=== PATIENT | female | born 1990 | race Caucasian/White ===

== ENCOUNTER 2020-05-30 08:27 | Outpatient (CLI) | payer BC, SELFPAY ==
--- NOTE | 2020-05-30 08:32 | US_ITS ---
WS: [id number] ULTRASOUND EARLY TECHNIQUE: Transabdominal sonography of the pelvis was performed. Followed by transvaginal sonography to better evaluate the uterus and ovaries. CLINICAL INFORMATION: SUPERVISION, NORMAL LMP: 04/07/2020 Beta hCG: Unknown. COMPARISON: None. FINDINGS: UTERUS AND GESTATIONAL SAC Intrauterine gestations: 1-year-old sacs are identified. Only one pole and heart rate identifie d. Recommend short interval follow-up to evaluate for twin . Estimated gestational age: 6w2d 2 Yolk sacs are identified [place] rump length (CRL): 0.4 cm. heart motion: 96 BPM. Subchorionic hemorrhage: None. OVARIES Right ovary: Normal. Left ovary: Corpus luteum cyst measuring 2.4 x 2.3 x 2.3 cm FREE FLUID None. US/US OB <=14 wk fetus w transvag IMPRESSION: 1. Single live intrauterine . 2. Estimated gestational age; 6w2 3. 2 yolk sacs are identified. However, only one pole and one heart rate identified. Recommend short interval follow-up in one to 2 weeks to evaluate f or twin . 4. Left corpus luteum cyst
== END 2020-05-30 08:28 | disposition home or self-care (01) ==
LOC: US 08:29
PROVIDERS: Family Provider Family Medicine; Visit Provider Family Medicine
DX: Z34.80 Encounter for supervision of other normal pregnancy, unspecified trimester (principal); Z3A.01 Less than 8 weeks gestation of pregnancy; N83.12 Corpus luteum cyst of left ovary
CPT/HCPCS: 76801; 76817

== ENCOUNTER 2021-11-27 14:50 | Outpatient (CLI) | payer BC, SELFPAY ==
--- NOTE | 2021-11-27 15:10 | US_ITS ---
WS: [email or web address] ULTRASOUND LEFT BREAST HISTORY: BREAST LESION @ 3 O'CLOCK COMPARISON: None available. TECHNIQUE: 2-D and Doppler. There is a solid mass with increased vascularity and scattered cystic areas within the LEFT breast at 3:00, 2 cm from the nipple. This is a solid mass measuring 2.4 x 1.8 x 1.8 cm. Small benign-appearing lymph nodes in the LEFT axilla. US/US breast LT limited* [id number] IMPRESSION: BI-RADS: 4-Suspicious Finding-Biopsy Should Be Considered FOLLOW-UP: Biopsy Recommended Notified Paul Hyman MD at 11/30/2021 8:19 AM.
--- NOTE | 2021-11-27 15:10 | US_ITS ---
WS: [email or web address] EARLY OBSTETRICAL ULTRASOUND (<14 WEEKS). HISTORY: DATING COMPARISON: None available. Single intrauterine gestational sac is identified. Cardiac activity at 176 BPM. Lyle-rump length cuauhtemoc sures 2.0 cm which corresponds to a gestation of 8w4d. Normal-appearing yolk sac and amnion demonstra marsha. No subchorionic hemorrhage. No free fluid. LEFT ovary measures 2.3 x 4.2 x 4.4 cm. Normal size. RIGHT ovary measures 4.1 x 3.7 x 4.6 cm. The RIGHT ovary is slightly enlarged. There is a cyst associ ated with the RIGHT ovary with low-level echoes measuring 3.8 x 3.3 x 3.0 cm. There is also mild veno us congestion in the RIGHT adnexa with increased vascularity. Probably due to prior pregnancies. US/US OB <= 14 weeks fetus [id number] IMPRESSION: 1. Single intrauterine gestation of 8 weeks 4 days with an EDC of 07/05/2022 2. Mildly complex RIGHT ovarian cyst measures 3.8 x 3.3 x 3.0 cm and is probab ly a corpus luteum of . 3. Normal cardiac activity.
== END 2021-11-27 14:51 | disposition home or self-care (01) ==
LOC: RAD 15:02
PROVIDERS: PCP Family Medicine; Visit Provider Family Medicine
DX: Z36.87 Encounter for antenatal screening for uncertain dates (principal); Z3A.08 8 weeks gestation of pregnancy; N64.9 Disorder of breast, unspecified; N83.201 Unspecified ovarian cyst, right side
CPT/HCPCS: 76642; 76801

== ENCOUNTER 2021-12-18 07:43 | Outpatient (CLI) | payer BC, SELFPAY ==
--- NOTE | 2021-12-18 08:01 | US_ITS ---
WS: [email or web address] ULTRASOUND-GUIDED LEFT BREAST BIOPSY HISTORY: BREAST LESION COMPARISON: 11/27/2021 Procedure, risks and complications are explained to the patient. Medications are reviewed. Consent is obtained. The mass in the LEFT breast is localized with ultrasound. Mass localizes at 3:00, 2 cm from the nippl e. Skin is cleansed with ChloraPrep and anesthetized with 1% buffered lidocaine. Small dermatome is m hilaria. Under sterile conditions mass is biopsied with a 14-gauge Achieve needle. Multiple core biopsies are performed. Material placed in formalin and sent to pathology for review. No complications encoun tered. Breast tissue marker (MyGe[employer] ultrasound enhanced ribbon): Single. Patient left the radiology suite with no complications. Patient is instructed to return to [facility] or [facility] with any concerns. US/[place] [id number] IMPRESSION: 1. Uncomplicated core needle biopsy LEFT breast mass at 3:00. 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 No malignancy. RECOMMENDATION: This mass can be left alone as it is benign or surgical removal due to its large size. No further imaging necessary at this time.
== END 2021-12-18 07:44 | disposition home or self-care (01) ==
LOC: RAD 07:45
PROVIDERS: PCP Family Medicine; Visit Provider Family Medicine
DX: N64.9 Disorder of breast, unspecified (principal); N63.25 Unspecified lump in the left breast, overlapping quadrants
CPT/HCPCS: 19083; 88305

== ENCOUNTER 2022-02-15 07:10 | Outpatient (CLI) | payer BC, SELFPAY ==
--- NOTE | 2022-02-15 07:15 | US_ITS ---
WS: [email or web address] OBSTETRICAL ULTRASOUND COMPLETE HISTORY: ANATOMY COMPARISON: 11/27/2021 Single intrauterine gestation in variable presentation. The vertex at the end of the examination. Cervix is Closed and normal length. Cervical length is 4.8 cm. Normal amount of amniotic fluid surrounds the fetus. Placenta: Posterior, no previa or abruption. Placenta grade 0 Heart: 157 BPM. Four chambers are identified. RIGHT and LEFT outflow tracts are unremarkable. Anatomy: Intracranial structures and spine are normal. kidneys, stomach and urinary bladd er are unremarkable. Abdominal wall, three-vessel cord and cord insertion site are normal. 4 extremities are present. profile: Unremarkable. Gender: Female. measurements: BPD = 4.5 cm = 19w5d HC = 17.7 cm = 20w1d AC = 14.9 cm = 20w1d FL = 3.3 cm = 20w2d EFW: 341 g. Biometry is internally concordant. AGA by ultrasound: 20w1d ELTON by ultrasound: 07/04/2022 US/US OB >= 14 weeks fetus [id number] IMPRESSION: 1. Single intrauterine gestation of 20w1d with an ELTON of 07/04/2022. Appropria te growth since the first trimester ultrasound. No growth asymmetry. 2. Unremarkable screening survey of anatomy.
== END 2022-02-15 07:11 | disposition home or self-care (01) ==
LOC: RAD 07:10
PROVIDERS: PCP Family Medicine; Visit Provider Family Medicine
DX: Z34.80 Encounter for supervision of other normal pregnancy, unspecified trimester (principal)
CPT/HCPCS: 76805

== ENCOUNTER → 2022-03-19 11:48 | Outpatient (BNVA) | payer BC, SELFPAY | PROVIDERS: PCP Family Medicine; Visit Provider Family Medicine | DX: Z34.91 Encounter for supervision of normal pregnancy, unspecified, first trimester (principal) | CPT/HCPCS: 82950 ==

== ENCOUNTER → 2022-05-14 08:04 | Outpatient (BNVA) | payer BC, SELFPAY | PROVIDERS: PCP Family Medicine; Visit Provider Family Medicine | DX: Z34.80 Encounter for supervision of other normal pregnancy, unspecified trimester (principal) | CPT/HCPCS: 85025 ==

== ENCOUNTER → 2022-05-27 12:00 | Outpatient (BNVA) | payer BC, SELFPAY | PROVIDERS: PCP Family Medicine; Visit Provider Family Medicine | DX: O16.3 Unspecified maternal hypertension, third trimester (principal) | CPT/HCPCS: 80053; 84550; 85025 ==

== ENCOUNTER 2022-05-28 14:51 | Outpatient (CLI) | payer BC, SELFPAY ==
[2022-05-28 16:27] LABS: Urine Total Protein 5.8 mg/dL (0-150)
[2022-05-28 16:42] LABS: Total Volume, Urine 3050 mL; Urine Total Protein 24 Hour 176.9 mg/24hr (0-150)
== END 2022-05-28 14:52 | disposition home or self-care (01) ==
LOC: LAB 14:54
PROVIDERS: PCP Family Medicine; Visit Provider Family Medicine
DX: O16.3 Unspecified maternal hypertension, third trimester (principal)
CPT/HCPCS: 84156

== ENCOUNTER → 2022-06-03 12:07 | Outpatient (BNVA) | payer BC, SELFPAY | PROVIDERS: PCP Family Medicine; Visit Provider Family Medicine | DX: Z34.80 Encounter for supervision of other normal pregnancy, unspecified trimester (principal) | CPT/HCPCS: 87081 ==

== ENCOUNTER → 2022-06-15 09:34 | Outpatient (BNVA) | payer BC, SELFPAY | PROVIDERS: PCP Family Medicine; Visit Provider Family Medicine | DX: Z51.81 Encounter for therapeutic drug level monitoring (principal); O16.3 Unspecified maternal hypertension, third trimester | CPT/HCPCS: 80053; 84550; 85025 ==

== ENCOUNTER 2022-06-16 07:41 | Outpatient (CLI) | payer BC, SELFPAY ==
[2022-06-16 08:06] LABS: Total Volume, Urine 3100 mL
[2022-06-16 12:13] VITALS: BP 132/87; PULSE 76; TEMP 35.7
[2022-06-16 12:16] VITALS: RESP 18
[2022-06-16 12:29] VITALS: BP 123/73; PULSE 74
[2022-06-16 12:44] VITALS: BP 123/82; PULSE 71
[2022-06-16 12:59] VITALS: BP 123/76; PULSE 80
== END 2022-06-16 13:15 | disposition home or self-care (01) ==
LOC: LAB 07:45 → OBGYN 12:10
PROVIDERS: PCP Family Medicine; Visit Provider Family Medicine
DX: O16.3 Unspecified maternal hypertension, third trimester
CPT/HCPCS: 84156

== ENCOUNTER 2022-06-16 12:02 | Outpatient (CLI) | payer BC, SELFPAY ==
[2022-06-16 12:16] VITALS: RESP 18
--- NOTE | 2022-06-16 12:16 | US_ITS ---
WS: [email or web address] ULTRASOUND OB LIMITED TECHNIQUE: Limited ultrasound examination of the fetus. CLINICAL INFORMATION: gestational HTN COMPARISON: February 15, 2022 FINDINGS: Cervix measures 5.6 cm Single interuterine gestation. Placental location is posterior fundal. Placenta grade: 1 heart rate 147 BPM. Anatomy: BDP: 9.2 cm = 37w1d HC: 32.6 cm = 37w0d AC: 33.2 cm = 37w1d FEMUR LENGTH: 7.3 cm = 37w1d Estimated weight: 3121 g. EGA by ultrasound: 37w1d ELTON by ultrasound: 07/06/2022 Biophysical profile 8 out of 8. breathin movement: 2 tone: 2 Amniotic fluid: 2 Normal biophysical profile 8 out of 8 US/US OB lmt w/ BPP wo NST IMPRESSION: 1. Normal biophysical profile 8 out of 8 2. Normal DU 15.1 cm. This is greater than the median and less than 95th perc entile for gestational age. 3. Closed cervix measures 5.6 cm. 4. growth parameters at the upper end of the range.
[2022-06-16 12:23] VITALS: BMI 34.2
== END 2022-06-16 13:15 | disposition home or self-care (01) ==
LOC: OPOB 12:09
PROVIDERS: PCP Family Medicine; Visit Provider Family Medicine
DX: O26.899 Other specified pregnancy related conditions, unspecified trimester (principal); Z3A.00 Weeks of gestation of pregnancy not specified
CPT/HCPCS: 59025; 76815; 76819

== ENCOUNTER 2022-06-21 09:23 | Outpatient (CLI) | payer BC, SELFPAY ==
[2022-06-21 09:26] VITALS: BMI 33.9
[2022-06-21 09:30] VITALS: BP 136/90; PULSE 90
[2022-06-21 09:46] VITALS: BP 143/85; PULSE 83
[2022-06-21 10:02] VITALS: BP 140/84; PULSE 105
== END 2022-06-21 10:08 | disposition home or self-care (01) ==
LOC: OPOB 09:24 → OBGYN 09:25
PROVIDERS: PCP Family Medicine; Visit Provider Family Medicine
DX: O16.3 Unspecified maternal hypertension, third trimester (principal); Z3A.37 37 weeks gestation of pregnancy
CPT/HCPCS: 59025

== ENCOUNTER 2022-06-23 18:23 | Inpatient (IN) | payer BC, SELFPAY ==
[2022-06-23] VITALS (30 sets, daily range): BP systolic 122–156; BP diastolic 69–97; PULSE 69–109; RESP 18; O2SAT 93–98; BMI 34.8
[2022-06-23 19:17] LABS: Basophils % 0.1 %; Eosinophils # 0.1 10^3/uL (0.0-0.8); Hematocrit 35.7 % (37.0-47.0); Hemoglobin 11.9 g/dL (11.5-15.3); Lymphocytes # 1.5 10^3/uL (0.8-4.8); Lymphocytes % 14.1 %; Mean Corpuscular HGB Conc 33.3 g/dL (30.0-36.0); Mean Corpuscular Hemoglobin 29.1 pg (28.0-34.0); Mean Corpuscular Volume 87.3 fl (81-99); Mean Platelet Volume 12.7 fL (7.4-10.4); Monocytes # 0.7 10^3/uL (0.2-0.9); Monocytes % 6.6 %; Neutrophils # 8.13 10^3/uL (1.8-7.7); Neutrophils % 77.7 %; Nucleated Red Blood Cells % 0 %; Platelet Count 172 10^3/cmm (130-400); Red Blood Count 4.09 10^6/uL (4.1-5.3); Red Cell Distribution Width 13.5 % (12.1-15.1); White Blood Count 10.5 10^3/uL (4.0-10.0)
[2022-06-23] MEDS: ampicillin 2,000 MG in sodium chloride 0.9% (plus) 50 ML 100 MG IV (19:29)
[2022-06-23] MEDS: dextrose 5%-lactated ringers 1,000 ML 125 ML IV (19:29)
[2022-06-23 19:38] LABS: Alanine Aminotransferase 15 U/L (0-33); Albumin Level 3.6 g/dL (3.5-5.2); Alkaline Phosphatase 152 U/L (35-105); Aspartate Amino Transferase 18 U/L (0-32); Blood Urea Nitrogen 8 mg/dL (6-20); Calcium 8.7 mg/dL (8.5-10.5); Carbon Dioxide 21 mmol/L (22-29); Chloride 103 mmol/L (98-107); Glomerular Filtration Rate 142.1 mL/min (90-130); Glucose 80 mg/dL (65-115); Osmolality Calculated 279 mOsm/kg (285-295); Sodium 136 mmol/L (136-145); Total Bilirubin 0.2 mg/dL (0.15-1.2); Total Protein 6.6 g/dL (6.6-8.7)
[2022-06-23] MEDS: oxytocin 30 UNIT/500 ML BAG IV (19:41)
[2022-06-23] MEDS: lactated ringers 1,000 ML 999 ML IV (21:52)
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
[2022-06-23] MEDS: ampicillin 1,000 MG in sodium chloride 0.9% (plus) 50 ML 100 MG IV (23:09)
--- NOTE | 2022-06-23 23:25 | P.ANESUD_ITS ---
Pre-Anesthetic Update Pre-Anesthetic Assessment: Date of Surgery/Procedure: 06/23/22 Preop Luz Maria gnosis: Planning of labor analgesia Proposed Procedure: epidural Any changes to Pre-Anesthetic Assessment?: No Labs Last 48hrs: Short CBC 06/23/22 Range/Units 18:30 WBC 10.5 H (4.0-10.0) 10^3/ uL Hgb 11.9 (11.5-15.3) g/dL Hct 35.7 L (37.0-47.0) % MCV 87.3 (81-99) fl Plt Count 172 (130-400) 10^3/c mm Neut % (Auto) 77.7 % Neut # (Auto) 8.13 H (1.8-7.7) 10^3/u L BMP 06/23/22 18:30 Sodium 136 Potassium 4.0 Chloride 103 Carbon Dioxide 21 L BUN 8 Creatinine 0.5 Glucose 80 Calcium 8.7 Liver Function 06/23/22 Range/Units 18:30 Total Bilirubin 0.2 (0.15-1.2) mg/dL AST 18 (0-32) U/L ALT 15 (0-33) U/L Alkaline Phosphata se 152 H (35-105) U/L Albumin 3.6 (3.5-5.2) g/dL Vitals: Pulse Rate 83 06/23/22 23:41 Pulse Rhythm 06/23/22 19:31 Pulse Strength 3+ Normal 06/23/22 19:31 Respiratory Rate 18 06/23/22 18:58 Respiratory Effort Non-Labored 06/23/22 19:31 Respiratory Depth Normal 06/23/22 19:31 Respiratory Patter n 06/23/22 19:31 Blood Pressure 144/88 06/23/22 23:41 Pulse Oximetry 97 06/23/22 23:36 Oxygen Delivery Me thod 06/23/22 19:31 Exam: Pre-Anes Outpt Exam: alert and oriented x 3 Cardiac Studies: No Data to Display
--- NOTE | 2022-06-23 23:44 | P.ANES_ITS ---
Anesthesia Procedures Procedure/Date: 06/23/22 Epidural: Time Out Performed: Yes Consents Signed: Procedure Consent Consent: from patient, risks and benefits reviewed and patient agrees to proceed Lumbar Level: L3-L4 Epidural position: sitting Epidural procedure: sterile prep of area, 1% lidocaine to numb the area, 18 g needle, negative for p aresthesia passed, test dose given, 1.5% xylocaine 1:200k epi, placed PCEA, no systemic response, sterile dressing applied, L.U.D. no apparent complications and 0.2% Ropiavacaine @ mls/hr (13) Additional Comments: FITZ at 6, taped at 12 at skin. Neg CSF, Neg blood return
[2022-06-24] VITALS (45 sets, daily range): BP systolic 105–157; BP diastolic 59–89; PULSE 61–100; RESP 18; TEMP 36.4–36.7; O2SAT 96–97
[2022-06-24] MEDS: ampicillin 1,000 MG in sodium chloride 0.9% (plus) 50 ML 100 MG IV (03:53)
[2022-06-24] MEDS: ondansetron 2 mg/ML SDV 2 mL 4 MG IVP (04:28)
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
[2022-06-24] MEDS: acetaminophen 325 mg Tablet 650 MG PO ×3 (06:29→19:38)
[2022-06-24] MEDS: ibuprofen 800 mg tablet PO ×3 (09:04→21:17)
[2022-06-24] MEDS: prenatal vitamin Capsule 1 CAP PO (09:04)
[2022-06-24] MEDS: docusate sodium 100 mg Capsule PO ×2 (09:04→18:23)
[2022-06-24] MEDS: lanolin oint 7 gm 1 APPLIC TOPICAL (09:05)
[2022-06-24] MEDS: benzocaine-menthol 78 gm Canister 1 SPRAY TOPICAL (09:05)
--- NOTE | 2022-06-24 09:30 | ANE.PACU2 ---
Inpatient post-anesthesia follow up: Airway intact: Yes Vital signs: Temperature 98.0 F Pulse Rate 83 Respiratory Rate 18 Blood Pressure 121/68 Pulse Oximetry 96 Oxygen Delivery Me thod Room Air Oxygen Flow Rate Fraction of Inspir ed Oxygen Hydration adequate: Yes Nausea and vomiting: No Pain level: 2 Mental status: Baseline
--- NOTE | 2022-06-24 13:00 | PC.NURSE ---
TRANSFERRED TO OB 11
[2022-06-24 17:41] LABS: Hematocrit 32.1 % (37.0-47.0); Hemoglobin 10.7 g/dL (11.5-15.3); Mean Corpuscular HGB Conc 33.3 g/dL (30.0-36.0); Mean Corpuscular Hemoglobin 29.6 pg (28.0-34.0); Mean Corpuscular Volume 88.9 fl (81-99); Mean Platelet Volume 12.6 fL (7.4-10.4); Platelet Count 153 10^3/cmm (130-400); Red Blood Count 3.61 10^6/uL (4.1-5.3); Red Cell Distribution Width 13.6 % (12.1-15.1); White Blood Count 14.8 10^3/uL (4.0-10.0)
[2022-06-25] VITALS: BP 131/74; PULSE 68; O2SAT 97
[2022-06-25] MEDS: acetaminophen 325 mg Tablet 650 MG PO (03:13)
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
[2022-06-25] MEDS: docusate sodium 100 mg Capsule PO (09:24)
[2022-06-25] MEDS: ibuprofen 800 mg tablet PO (09:24)
[2022-06-25] MEDS: prenatal vitamin Capsule 1 CAP PO (09:24)
[2022-06-25 10:15] VITALS: BP 130/88; PULSE 78; RESP 16; TEMP 36.4; O2SAT 100
== END 2022-06-25 10:40 | disposition home or self-care (01) | DRG 807 ==
LOC: OPOB 18:23 → OBGYN 18:23
PROVIDERS: Admitting Provider Family Medicine; PCP Family Medicine; Visit Provider Family Medicine
DX: O13.4 Gestational [pregnancy-induced] hypertension without significant proteinuria, complicating childbirth (principal); Z37.0 Single live birth; O99.824 Streptococcus B carrier state complicating childbirth; O69.2XX0 Labor and delivery complicated by other cord entanglement, with compression, not applicable or unspecified; O70.1 Second degree perineal laceration during delivery; Z3A.38 38 weeks gestation of pregnancy
CPT/HCPCS: 51702; 59025; 59409; 80053; 84550; 85025; 85027; J0290; J2405; J2795

== ENCOUNTER → 2022-10-26 12:04 | Outpatient (BNVA) | payer BC, SELFPAY | PROVIDERS: PCP Family Medicine; Visit Provider Family Medicine | DX: Z00.00 Encounter for general adult medical examination without abnormal findings (principal) | CPT/HCPCS: 80053; 84443; 85025; 86140 ==

== ENCOUNTER → 2022-12-03 12:17 | Outpatient (BNVA) | payer BC, SELFPAY | PROVIDERS: PCP Family Medicine; Visit Provider Family Medicine | DX: R53.83 Other fatigue (principal) | CPT/HCPCS: 82306 ==

== ENCOUNTER → 2022-12-21 11:52 | Outpatient (BNVA) | payer BC, SELFPAY | PROVIDERS: PCP Family Medicine; Visit Provider Family Medicine | DX: R53.83 Other fatigue (principal); L65.9 Nonscarring hair loss, unspecified | CPT/HCPCS: 84439; 84443; 86376 ==

== ENCOUNTER 2023-12-12 11:11 | Outpatient (CLI) | payer BC, SELFPAY ==
--- NOTE | 2023-12-12 11:15 | US_ITS ---
WS: [id number] US pelv w/transvag [id number] HISTORY: pelvic pain/ irregular periods COMPARISON: None available. Uterus: 7.9 cm x 6.7 cm x 4.0 cm. Normal size anteverted uterus. No fibroid or mass. Mildly heterogeneous myometrium. No mass identifie d. Endometrium: 0.5 cm. Normal Right ovary: 2.1 cm x 2.7 cm x 2.4 cm. Normal size and vascularity, no cystic or solid masses. Left ovary: 3.4 cm x 2.6 cm x 1.9 cm. Normal size and vascularity, no cystic or solid masses. No free fluid in the cul-de-sac. IMPRESSION: Unremarkable pelvic ultrasound.
== END 2023-12-12 11:12 | disposition home or self-care (01) ==
LOC: RAD 11:12
PROVIDERS: PCP Family Medicine; Visit Provider Family Medicine
DX: R10.2 Pelvic and perineal pain (principal)
CPT/HCPCS: 76830; 76856

== ENCOUNTER → 2024-07-23 16:39 | Outpatient (BNVA) | payer BC, SELFPAY | PROVIDERS: PCP Family Medicine; Visit Provider Family Medicine | DX: Z78.9 Other specified health status (principal) | CPT/HCPCS: 87624 ==